=== PATIENT | male | born 1945 | race African-American/Black ===

== ENCOUNTER 2020-09-17 10:31 | Inpatient (IN) | payer MEDICARE ==
[~2020-09-17] VITALS: Ht 175.3 cm; Wt 62.6 kg
[2020-09-17] MEDS ORDERED: SODIUM CHLORIDE 0.9% 1000ML BAG (SEPSIS BOLUS) IV ONE (11:00)
[2020-09-17 11:21] LABS: HEMATOCRIT. 29.2 % (42.0-52.0); MEAN CORPUSCULAR HEMOGLOBIN 29.5 pg (28.0-32.0); MEAN CORPUSCULAR VOLUME 95.6 fL (80.0-94.0); PLATELET 197 x1000/uL (130-400); RED BLOOD CELL COUNT 3.06 mill/uL (4.7-6.1); RED CELL DISTRIBUTION WIDTH 23.1 % (11.6-14.6)
[2020-09-17 11:27] LABS: CHLORIDE 105 mEq/L (98-107)
[2020-09-17 11:28] LABS: INR 1.2; PROTHROMBIN TIME 12.4 sec (9.6-11.0)
[2020-09-17 11:50] LABS: NUCLEATED RED BLOOD CELLS 1 /100 WBC; PLATELET ESTIMATE NORMAL
[2020-09-17] MEDS ORDERED: PIPERACILLIN/TAZ 3.375G PREMIX 50 ML IV ONE (12:30)
[2020-09-17] MEDS ORDERED: VANCOMYCIN 1 G PREMIX 200 ML IV ONE (12:30)
[2020-09-17 14:01] LABS: BG BASE EXCESS -2.5 mmol/L (-2.0-2.0); BG CARBOXYHEMOGLOBIN 0.4 % (0.5-1.5); BG DEOXYHEMOGLOBIN 3.8 % (0.0-5.0); BG FRACTION INSPIRED OXYGEN 36; BG HCO3 ACT 22.7 mmol/L (22.0-26.0); BG METHEMOGLOBIN 0.3 % (0.0-1.5); BG OXYGEN SATURATION 96.2 % (92.0-98.5); BG OXYHEMOGLOBIN 95.5 % (94.0-97.0); BG PCO2 40.7 mmHg (35.0-45.0); BG PH 7.364 (7.350-7.450); BG PO2 95.4 mmHg (75.0-100.0); BG SAMPLE SITE RIGHT RADIAL; BG TOTAL HEMOGLOBIN 8.7 g/dL (12.0-18.0); BG VENT MODE NASAL CANNULA
[2020-09-17] MEDS ORDERED: ONDANSETRON HCL 4MG/2ML INJ IV PRN (15:15)
[2020-09-17] MEDS ORDERED: CLONIDINE 0.1MG TABLET PO PRN (15:15)
[2020-09-17] MEDS ORDERED: NITROGLYCERIN 0.4MG TABLET SL SL PRN (15:15)
[2020-09-17] MEDS ORDERED: DIPHENHYDRAMINE 50MG/ML VIAL IV PRN (15:15)
[2020-09-17] MEDS ORDERED: ACETAMINOPHEN 325MG TABLET PO PRN ×2 (15:15)
[2020-09-17] MEDS ORDERED: TRAMADOL 50MG TABLET PO PRN (15:15)
[2020-09-17] MEDS ORDERED: GUAIFENESIN 200MG/10ML SUGAR FREE UDC PO PRN (15:15)
[2020-09-17] MEDS ORDERED: PIPERACILLIN/TAZ 3.375G PREMIX 50 ML IV SCH (15:15)
[2020-09-17] MEDS ORDERED: SODIUM CHLORIDE 0.9% 500 ML IV ONE (15:15)
[2020-09-17] MEDS ORDERED: DOCUSATE SODIUM 100MG CAPSULE PO PRN (15:15)
[2020-09-17] MEDS ORDERED: ZOLPIDEM TARTRATE 5MG TABLET PO PRN (15:15)
[2020-09-17] MEDS ORDERED: MAGNESIUM/ALUMINUM HYDROXIDE/SIMETHICONE 30ML UDC PO PRN (15:15)
[2020-09-17] MEDS ORDERED: IPRATROPIUM/ALBUTEROL 0.5-3(2.5)MG/3ML NEB NEB PRN (15:15)
[2020-09-17] MEDS ORDERED: NOREPINEPHRINE 8 MG in DEXT 5% WATER 242 ML IV PRN ×2 (16:00→16:15)
[2020-09-17 16:35] LABS: FOLIC ACID (FOLATE) SERUM 19.3 ng/mL (>5.38)
[2020-09-17 17:49] LABS: BG DEOXYHEMOGLOBIN 4.1 % (0.0-5.0); BG FRACTION INSPIRED OXYGEN 32; BG HCO3 ACT 23.5 mmol/L (22.0-26.0); BG METHEMOGLOBIN 0.1 % (0.0-1.5); BG OXYGEN SATURATION 95.9 % (92.0-98.5); BG OXYHEMOGLOBIN 95.8 % (94.0-97.0); BG PCO2 43.5 mmHg (35.0-45.0); BG PH 7.351 (7.350-7.450); BG PO2 95.5 mmHg (75.0-100.0); BG SAMPLE SITE RIGHT RADIAL; BG VENT MODE NASAL CANNULA
[2020-09-17] MEDS ORDERED: MIDODRINE HCL 5MG TABLET PO SCH (18:45)
[2020-09-17 19:40] LABS: HEPATITIS B SURFACE ANTIGEN NEGATIVE
[2020-09-17 20:10] LABS: HEPATITIS A AB IGM NEGATIVE (NEGATIVE)
[2020-09-17] MEDS: ASCORBIC ACID 500 MG TABLET PO SCH (21:28)
[2020-09-17] MEDS: FAMOTIDINE 20MG TABLET PO SCH (21:30)
[2020-09-17] MEDS: EPOETIN ALFA-EPBX 10,000 UNIT/ML VIAL SUBCUT SCH (21:33)
[2020-09-17] MEDS: ENOXAPARIN 30MG/0.3ML SYR SUBCUT SCH (21:34)
[2020-09-17] MEDS: SEVELAMER CARBONATE 800 MG TABLET PO SCH (22:30)
[2020-09-17] MEDS: PIPERACILLIN/TAZOBACTAM 2.25G in DEXTROSE 5% WATER 50ML IV SCH (22:31)
[2020-09-17 22:58] LABS: CREATINE KINASE MB FRACTION 3.5 ng/mL (0.5-3.6)
[2020-09-18] VITALS (7 sets, daily range): BP systolic 92–155; BP diastolic 57–96
[2020-09-18 05:09] LABS: HEMATOCRIT. 31.1 % (42.0-52.0); MEAN CORPUSCULAR HEMOGLOBIN 29.6 pg (28.0-32.0); MEAN CORPUSCULAR VOLUME 92.2 fL (80.0-94.0); MEAN PLATELET VOLUME 8.4 fl (7.4-10.4); PLATELET 192 x1000/uL (130-400); RED BLOOD CELL COUNT 3.38 mill/uL (4.7-6.1); RED CELL DISTRIBUTION WIDTH 22.6 % (11.6-14.6)
[2020-09-18 05:16] LABS: CHLORIDE 104 mEq/L (98-107)
[2020-09-18 05:22] LABS: PHOSPHORUS 5.5 mg/dL (2.5-4.9)
[2020-09-18 05:25] LABS: CREATINE KINASE 125 IU/L (39-308)
[2020-09-18 05:27] LABS: CREATINE KINASE MB FRACTION 2.8 ng/mL (0.5-3.6)
[2020-09-18] MEDS: PIPERACILLIN/TAZOBACTAM 2.25G in DEXTROSE 5% WATER 50ML IV SCH ×3 (06:52→21:22)
[2020-09-18] MEDS: SEVELAMER CARBONATE 800 MG TABLET PO SCH ×3 (07:00→18:18)
[2020-09-18] MEDS: ASPIRIN 325MG EC TABLET PO SCH (09:00)
[2020-09-18] MEDS: FAMOTIDINE 20MG TABLET PO SCH (10:23)
[2020-09-18] MEDS: CHOLECALCIFEROL (D3) 1000 UNIT TABLET PO SCH (10:24)
[2020-09-18] MEDS: ASCORBIC ACID 500 MG TABLET PO SCH ×2 (10:24→21:22)
[2020-09-18] MEDS: ZINC SULFATE 220 MG ( 50 ) CAPSULE PO SCH (10:24)
[2020-09-18] MEDS: ENOXAPARIN 30MG/0.3ML SYR SUBCUT SCH (11:39)
[2020-09-18 12:05] LABS: PLATELET ESTIMATE NORMAL
[2020-09-18] MEDS ORDERED: NALOXONE HCL 0.4MG/ML VIAL IV PRN (15:45)
[2020-09-19] VITALS (8 sets, daily range): BP systolic 88–116; BP diastolic 57–72
[2020-09-19] MEDS: IPRATROPIUM/ALBUTEROL 0.5-3(2.5)MG/3ML NEB HHN SCH ×3 (00:52→17:10)
[2020-09-19] MEDS: PIPERACILLIN/TAZOBACTAM 2.25G in DEXTROSE 5% WATER 50ML IV SCH ×3 (06:18→22:08)
[2020-09-19] MEDS: CHOLECALCIFEROL (D3) 1000 UNIT TABLET PO SCH (08:50)
[2020-09-19] MEDS: SEVELAMER CARBONATE 800 MG TABLET PO SCH ×3 (08:51→18:13)
[2020-09-19] MEDS: ASCORBIC ACID 500 MG TABLET PO SCH ×2 (08:51→22:08)
[2020-09-19] MEDS: FAMOTIDINE 20MG TABLET PO SCH (08:51)
[2020-09-19] MEDS: ASPIRIN 325MG EC TABLET PO SCH (09:00)
[2020-09-19 09:04] LABS: PHOSPHORUS 5.6 mg/dL (2.5-4.9)
[2020-09-19 09:10] LABS: HEMATOCRIT. 26.6 % (42.0-52.0); HEMOGLOBIN. 8.6 g/dL (14.0-18.0); MEAN CORPUSCULAR HEMOGLOBIN 29.9 pg (28.0-32.0); MEAN CORPUSCULAR VOLUME 92.8 fL (80.0-94.0); MEAN PLATELET VOLUME 8.8 fl (7.4-10.4); PLATELET 160 x1000/uL (130-400); RED BLOOD CELL COUNT 2.87 mill/uL (4.7-6.1); RED CELL DISTRIBUTION WIDTH 22.4 % (11.6-14.6)
[2020-09-19] MEDS: ZINC SULFATE 220 MG ( 50 ) CAPSULE PO SCH (09:15)
[2020-09-19] MEDS ORDERED: MIDODRINE HCL 5MG TABLET PO SCH (14:00)
[2020-09-19 17:54] LABS: NUCLEATED RED BLOOD CELLS 1 /100 WBC; PLATELET ESTIMATE NORMAL
[2020-09-19] MEDS: EPOETIN ALFA-EPBX 10,000 UNIT/ML VIAL SUBCUT SCH (22:21)
[2020-09-20] VITALS (10 sets, daily range): BP systolic 95–126; BP diastolic 55–96
[2020-09-20] MEDS: IPRATROPIUM/ALBUTEROL 0.5-3(2.5)MG/3ML NEB HHN SCH ×4 (00:02→23:10)
[2020-09-20 05:31] LABS: HEMATOCRIT. 30.7 % (42.0-52.0); HEMOGLOBIN. 9.7 g/dL (14.0-18.0); MEAN CORPUSCULAR HEMOGLOBIN 29.6 pg (28.0-32.0); MEAN CORPUSCULAR VOLUME 93.6 fL (80.0-94.0); MEAN PLATELET VOLUME 8.9 fl (7.4-10.4); PLATELET 143 x1000/uL (130-400); RED BLOOD CELL COUNT 3.28 mill/uL (4.7-6.1); RED CELL DISTRIBUTION WIDTH 22.8 % (11.6-14.6)
[2020-09-20] MEDS: PIPERACILLIN/TAZOBACTAM 2.25G in DEXTROSE 5% WATER 50ML IV SCH ×3 (05:38→23:32)
[2020-09-20 05:47] LABS: CHLORIDE 102 mEq/L (98-107)
[2020-09-20 05:58] LABS: PHOSPHORUS 4.4 mg/dL (2.5-4.9)
[2020-09-20] MEDS: DILTIAZEM HCL 30MG TABLET PO SCH ×3 (08:36→23:33)
[2020-09-20] MEDS: ASCORBIC ACID 500 MG TABLET PO SCH ×2 (08:36→23:33)
[2020-09-20] MEDS: SEVELAMER CARBONATE 800 MG TABLET PO SCH ×2 (08:36→13:00)
[2020-09-20] MEDS: ZINC SULFATE 220 MG ( 50 ) CAPSULE PO SCH (08:36)
[2020-09-20] MEDS: FAMOTIDINE 20MG TABLET PO SCH (08:36)
[2020-09-20] MEDS: CHOLECALCIFEROL (D3) 1000 UNIT TABLET PO SCH (08:36)
[2020-09-21] VITALS (9 sets, daily range): BP systolic 99–148; BP diastolic 59–74
[2020-09-21 00:14] LABS: NUCLEATED RED BLOOD CELLS 1 /100 WBC; PLATELET ESTIMATE NORMAL
[2020-09-21 05:26] LABS: HEMATOCRIT. 30.2 % (42.0-52.0); HEMOGLOBIN. 9.4 g/dL (14.0-18.0); MEAN CORPUSCULAR HEMOGLOBIN 29.9 pg (28.0-32.0); MEAN CORPUSCULAR VOLUME 95.8 fL (80.0-94.0); MEAN PLATELET VOLUME 8.6 fl (7.4-10.4); PLATELET 149 x1000/uL (130-400); RED BLOOD CELL COUNT 3.16 mill/uL (4.7-6.1); RED CELL DISTRIBUTION WIDTH 23.1 % (11.6-14.6)
[2020-09-21] MEDS: PIPERACILLIN/TAZOBACTAM 2.25G in DEXTROSE 5% WATER 50ML IV SCH ×3 (05:29→21:12)
[2020-09-21] MEDS: DILTIAZEM HCL 30MG TABLET PO SCH (05:30)
[2020-09-21 05:59] LABS: PHOSPHORUS 3.9 mg/dL (2.5-4.9)
[2020-09-21 06:26] LABS: BG BASE EXCESS -3.5 mmol/L (-2.0-2.0); BG CARBOXYHEMOGLOBIN 0.8 % (0.5-1.5); BG DEOXYHEMOGLOBIN 9.6 % (0.0-5.0); BG FRACTION INSPIRED OXYGEN 32; BG HCO3 ACT 23.2 mmol/L (22.0-26.0); BG METHEMOGLOBIN 0.1 % (0.0-1.5); BG OXYGEN SATURATION 90.3 % (92.0-98.5); BG OXYHEMOGLOBIN 89.5 % (94.0-97.0); BG PH 7.293 (7.350-7.450); BG PO2 69.7 mmHg (75.0-100.0); BG SAMPLE SITE LEFT RADIAL; BG TOTAL HEMOGLOBIN 11.1 g/dL (12.0-18.0); BG VENT MODE NASAL CANNULA
[2020-09-21] MEDS: SEVELAMER CARBONATE 800 MG TABLET PO SCH ×4 (08:00→17:52)
[2020-09-21] MEDS: IPRATROPIUM/ALBUTEROL 0.5-3(2.5)MG/3ML NEB HHN SCH ×2 (08:32→12:54)
[2020-09-21] MEDS: ASCORBIC ACID 500 MG TABLET PO SCH ×2 (10:25→21:11)
[2020-09-21] MEDS: ZINC SULFATE 220 MG ( 50 ) CAPSULE PO SCH (10:26)
[2020-09-21] MEDS: CHOLECALCIFEROL (D3) 1000 UNIT TABLET PO SCH (10:26)
[2020-09-21] MEDS: FAMOTIDINE 20MG TABLET PO SCH (10:26)
[2020-09-21] MEDS: METOPROLOL TARTRATE 25MG TABLET PO SCH ×2 (10:45→21:00)
[2020-09-21] MEDS ORDERED: METOPROLOL TARTRATE 5MG/5ML VIAL IV SCH (11:15)
[2020-09-21 16:12] LABS: BG BASE EXCESS -6.1 mmol/L (-2.0-2.0); BG CARBOXYHEMOGLOBIN 0.3 % (0.5-1.5); BG DEOXYHEMOGLOBIN 0.6 % (0.0-5.0); BG FRACTION INSPIRED OXYGEN 100; BG HCO3 ACT 21.2 mmol/L (22.0-26.0); BG METHEMOGLOBIN 0.3 % (0.0-1.5); BG OXYGEN SATURATION 99.4 % (92.0-98.5); BG OXYHEMOGLOBIN 98.8 % (94.0-97.0); BG PCO2 51.2 mmHg (35.0-45.0); BG PH 7.235 (7.350-7.450); BG PO2 338.8 mmHg (75.0-100.0); BG SAMPLE SITE LEFT BRACHIAL; BG TOTAL HEMOGLOBIN 9.2 g/dL (12.0-18.0); BG TOTAL RESPIRATORY RATE 15 b/min
[2020-09-21 22:32] LABS: PLATELET ESTIMATE NORMAL
[2020-09-22] VITALS: BP 92/61
[2020-09-22] MEDS: IPRATROPIUM/ALBUTEROL 0.5-3(2.5)MG/3ML NEB HHN SCH ×3 (01:25→17:08)
[2020-09-22 04:00] VITALS: BP 114/44
[2020-09-22] MEDS: PIPERACILLIN/TAZOBACTAM 2.25G in DEXTROSE 5% WATER 50ML IV SCH ×2 (05:47→14:41)
[2020-09-22 08:00] VITALS: BP 141/81
[2020-09-22] MEDS: CHOLECALCIFEROL (D3) 1000 UNIT TABLET PO SCH (08:48)
[2020-09-22] MEDS: ASCORBIC ACID 500 MG TABLET PO SCH ×2 (08:48→20:33)
[2020-09-22] MEDS: METOPROLOL TARTRATE 25MG TABLET PO SCH (08:48)
[2020-09-22] MEDS: ZINC SULFATE 220 MG ( 50 ) CAPSULE PO SCH (08:48)
[2020-09-22] MEDS: FAMOTIDINE 20MG TABLET PO SCH (08:48)
[2020-09-22] MEDS: SEVELAMER CARBONATE 800 MG TABLET PO SCH ×3 (08:48→17:44)
[2020-09-22] MEDS ORDERED: METOPROLOL TARTRATE 25MG TABLET PO NR (09:30)
[2020-09-22 11:41] LABS: BG BASE EXCESS -8.2 mmol/L (-2.0-2.0); BG DEOXYHEMOGLOBIN 1.3 % (0.0-5.0); BG HCO3 ACT 19.7 mmol/L (22.0-26.0); BG OXYGEN SATURATION 98.7 % (92.0-98.5); BG OXYHEMOGLOBIN 98.7 % (94.0-97.0); BG PH 7.205 (7.350-7.450); BG SAMPLE SITE LEFT BRACHIAL; BG TOTAL HEMOGLOBIN 10.9 g/dL (12.0-18.0); BG VENT MODE MASK - BIPAP
[2020-09-22 12:20] VITALS: BP 99/70
[2020-09-22] MEDS ORDERED: SODIUM BICARBONATE 8.4% 1 MEQ/ML 50ML SYR IV NR (12:30)
[2020-09-22 16:00] VITALS: BP 126/77
[2020-09-22] MEDS ORDERED: AMIODARONE HCL 150 MG in DEXT 5% WATER 100 ML IV NR (16:00)
[2020-09-22] MEDS ORDERED: VANCOMYCIN 750 MG PREMIX 150 ML IV NR (17:00)
[2020-09-22 20:00] VITALS: BP 132/78
[2020-09-22] MEDS: EPOETIN ALFA-EPBX 10,000 UNIT/ML VIAL SUBCUT SCH (20:33)
[2020-09-22] MEDS: METOPROLOL TARTRATE 50MG TABLET PO SCH (20:34)
[2020-09-23] VITALS (105 sets, daily range): BP systolic 42–168; BP diastolic 24–120
[2020-09-23] MEDS: IPRATROPIUM/ALBUTEROL 0.5-3(2.5)MG/3ML NEB HHN SCH ×3 (01:02→16:51)
[2020-09-23 06:54] LABS: PHOSPHORUS 8.4 mg/dL (2.5-4.9)
[2020-09-23] MEDS ORDERED: DEXTROSE 50% WATER 50ML SYRINGE IV ONE ×3 (07:15→08:13)
[2020-09-23 07:22] LABS: HEMATOCRIT. 34.1 % (42.0-52.0); HEMOGLOBIN. 9.9 g/dL (14.0-18.0); MEAN CORPUSCULAR HEMOGLOBIN 29.9 pg (28.0-32.0); MEAN CORPUSCULAR VOLUME 102.8 fL (80.0-94.0); MEAN PLATELET VOLUME 8.8 fl (7.4-10.4); PLATELET 226 x1000/uL (130-400); RED BLOOD CELL COUNT 3.31 mill/uL (4.7-6.1); RED CELL DISTRIBUTION WIDTH 23.5 % (11.6-14.6)
[2020-09-23] MEDS ORDERED: DEXTROSE 50% WATER 50ML SYRINGE IV PRN (07:30)
[2020-09-23] MEDS ORDERED: CALCIUM CHLORIDE 1GM/10ML SYR IV ONE (08:13)
[2020-09-23] MEDS ORDERED: ATROPINE SULFATE 1MG/10ML SYR ONE (08:13)
[2020-09-23] MEDS ORDERED: EPINEPHRINE 0.1MG/ML (1:10,000) 10ML SYR ONE (08:13)
[2020-09-23] MEDS ORDERED: SODIUM BICARBONATE 8.4% 1 MEQ/ML 50ML SYR IV ONE (08:13)
[2020-09-23] MEDS ORDERED: DEXTROSE 50% WATER 50ML SYRINGE IV SCH (08:15)
[2020-09-23] MEDS: METOPROLOL TARTRATE 50MG TABLET PO SCH (09:00)
[2020-09-23] MEDS: ASCORBIC ACID 500 MG TABLET PO SCH ×2 (09:48→21:00)
[2020-09-23] MEDS: ZINC SULFATE 220 MG ( 50 ) CAPSULE PO SCH (09:48)
[2020-09-23] MEDS: CHOLECALCIFEROL (D3) 1000 UNIT TABLET PO SCH (09:49)
[2020-09-23] MEDS: FAMOTIDINE 20MG TABLET PO SCH (09:49)
[2020-09-23 10:02] LABS: BG BASE EXCESS -14.7 mmol/L (-2.0-2.0); BG CARBOXYHEMOGLOBIN 0.5 % (0.5-1.5); BG DEOXYHEMOGLOBIN 3.7 % (0.0-5.0); BG FRACTION INSPIRED OXYGEN 80; BG HCO3 ACT 15.9 mmol/L (22.0-26.0); BG METHEMOGLOBIN 0.3 % (0.0-1.5); BG OXYGEN SATURATION 96.3 % (92.0-98.5); BG OXYHEMOGLOBIN 95.5 % (94.0-97.0); BG PCO2 60.4 mmHg (35.0-45.0); BG PH 7.037 (7.350-7.450); BG PO2 121.9 mmHg (75.0-100.0); BG SAMPLE SITE LEFT RADIAL; BG TOTAL HEMOGLOBIN 10.5 g/dL (12.0-18.0); BG TOTAL RESPIRATORY RATE 25 b/min; BG VENT MODE MASK - BIPAP
[2020-09-23] MEDS ORDERED: SODIUM CHLORIDE 0.9% 10ML VIAL ONE (10:07)
[2020-09-23] MEDS ORDERED: VECURONIUM BROMIDE 10 MG/VIAL IV ONE (10:07)
[2020-09-23] MEDS ORDERED: ETOMIDATE 2MG/ML 10ML VIAL IV ONE (10:07)
[2020-09-23] MEDS ORDERED: SODIUM BICARBONATE 8.4% 1 MEQ/ML 50ML SYR IV SCH (10:15)
[2020-09-23] MEDS ORDERED: PHENYLEPHRINE 50 MG in DEXT 5% WATER 245 ML IV PRN (11:00)
[2020-09-23] MEDS ORDERED: NOREPINEPHRINE 8 MG in DEXT 5% WATER 242 ML IV PRN (11:00)
[2020-09-23] MEDS ORDERED: FENTANYL CITRATE/PF 2,500 MCG in SODIUM CHLORIDE 0.9% 200 ML IV PRN (11:00)
[2020-09-23] MEDS ORDERED: SODIUM CHLORIDE 0.9% 250 ML IV SCH (11:15)
[2020-09-23 11:50] LABS: HEPATITIS B SURFACE ANTIGEN NEGATIVE
[2020-09-23 12:19] LABS: HEPATITIS A AB IGM NEGATIVE (NEGATIVE)
[2020-09-23 12:46] LABS: BG BASE EXCESS -9.1 mmol/L (-2.0-2.0); BG CARBOXYHEMOGLOBIN 0.3 % (0.5-1.5); BG FRACTION INSPIRED OXYGEN 100; BG HCO3 ACT 16.9 mmol/L (22.0-26.0); BG METHEMOGLOBIN 0.5 % (0.0-1.5); BG OXYHEMOGLOBIN 98.2 % (94.0-97.0); BG PH 7.277 (7.350-7.450); BG PO2 228.9 mmHg (75.0-100.0); BG SAMPLE SITE LEFT RADIAL; BG TOTAL HEMOGLOBIN 10.8 g/dL (12.0-18.0); BG VENT MODE VENT - AC
[2020-09-23] MEDS: PROPOFOL 10MG/ML 100ML 100 ML IV PRN (12:57)
[2020-09-23] MEDS: SEVELAMER CARBONATE 800 MG TABLET PO SCH ×2 (14:15→17:32)
[2020-09-23] MEDS ORDERED: AMIODARONE HCL 150 MG in DEXT 5% WATER 100 ML IV NR (15:00)
[2020-09-23] MEDS: AMIODARONE HCL 900 MG in DEXT 5% WATER 482 ML IV SCH (15:34)
[2020-09-23] MEDS ORDERED: PIPERACILLIN/TAZOBACTAM 3.375 G in DEXTROSE 5% WATER 50 ML IV SCH (15:45)
[2020-09-23] MEDS: PHENYLEPHRINE 100 MG in DEXT 5% WATER 240 ML IV PRN (16:55)
[2020-09-23 17:01] LABS: PLATELET ESTIMATE NORMAL
[2020-09-23] MEDS: PIPERACILLIN/TAZOBACTAM 2.25G in DEXTROSE 5% WATER 50ML IV SCH (17:31)
[2020-09-23] MEDS: ENOXAPARIN 30MG/0.3ML SYR SUBCUT SCH (17:32)
[2020-09-23] MEDS ORDERED: SODIUM CHLORIDE 0.9% 250 ML IV NR (17:45)
[2020-09-23] MEDS ORDERED: DOPAMINE 800MG PREMIX (DOUBLE) 250 ML IV PRN (19:30)
[2020-09-23] MEDS ORDERED: VASOPRESSIN 20 UNIT in SODIUM CHLORIDE 0.9% 99 ML IV PRN (19:30)
[2020-09-23] MEDS: NOREPINEPHRINE 32 MG in DEXT 5% WATER 218 ML IV PRN (20:29)
[2020-09-23] MEDS ORDERED: METOPROLOL TARTRATE 25MG TABLET PO SCH (21:00)
[2020-09-23 22:58] LABS: BG BASE EXCESS -16.3 mmol/L (-2.0-2.0); BG CARBOXYHEMOGLOBIN 0.2 % (0.5-1.5); BG DEOXYHEMOGLOBIN 1.7 % (0.0-5.0); BG FRACTION INSPIRED OXYGEN 100; BG HCO3 ACT 11.3 mmol/L (22.0-26.0); BG METHEMOGLOBIN 0.1 % (0.0-1.5); BG OXYGEN SATURATION 98.3 % (92.0-98.5); BG PCO2 32.9 mmHg (35.0-45.0); BG PH 7.153 (7.350-7.450); BG PO2 150.5 mmHg (75.0-100.0); BG SAMPLE SITE LEFT BRACHIAL; BG TOTAL HEMOGLOBIN 11.6 g/dL (12.0-18.0); BG VENT MODE VENT - AC
[2020-09-23] MEDS ORDERED: SODIUM BICARBONATE 8.4% 1 MEQ/ML 50ML SYR IV NR (23:30)
[2020-09-24] VITALS (93 sets, daily range): BP systolic 74–151; BP diastolic 37–115
[2020-09-24] MEDS: IPRATROPIUM/ALBUTEROL 0.5-3(2.5)MG/3ML NEB HHN SCH ×4 (00:24→23:41)
[2020-09-24] MEDS: PIPERACILLIN/TAZOBACTAM 2.25G in DEXTROSE 5% WATER 50ML IV SCH ×3 (01:01→17:50)
[2020-09-24] MEDS: NOREPINEPHRINE 32 MG in DEXT 5% WATER 218 ML IV PRN ×3 (01:01→21:40)
[2020-09-24] MEDS: PHENYLEPHRINE 100 MG in DEXT 5% WATER 240 ML IV PRN ×3 (02:18→21:42)
[2020-09-24] MEDS: PROPOFOL 10MG/ML 100ML 100 ML IV PRN (04:01)
[2020-09-24 06:42] LABS: HEMATOCRIT. 31.8 % (42.0-52.0); HEMOGLOBIN. 9.6 g/dL (14.0-18.0); MEAN CORPUSCULAR HEMOGLOBIN 29.2 pg (28.0-32.0); MEAN CORPUSCULAR VOLUME 96.9 fL (80.0-94.0); PLATELET 229 x1000/uL (130-400); RED BLOOD CELL COUNT 3.29 mill/uL (4.7-6.1)
[2020-09-24 07:05] LABS: PHOSPHORUS 8.2 mg/dL (2.5-4.9)
[2020-09-24 08:16] LABS: NUCLEATED RED BLOOD CELLS 3 /100 WBC; PLATELET ESTIMATE NORMAL
[2020-09-24] MEDS: SEVELAMER CARBONATE 800 MG TABLET PO SCH ×2 (08:34→13:20)
[2020-09-24] MEDS: ENOXAPARIN 30MG/0.3ML SYR SUBCUT SCH (08:35)
[2020-09-24] MEDS: ZINC SULFATE 220 MG ( 50 ) CAPSULE PO SCH (08:35)
[2020-09-24] MEDS: ASCORBIC ACID 500 MG TABLET PO SCH ×2 (08:35→21:43)
[2020-09-24] MEDS: CHOLECALCIFEROL (D3) 1000 UNIT TABLET PO SCH (08:35)
[2020-09-24] MEDS: FAMOTIDINE 20MG TABLET PO SCH (08:35)
[2020-09-24 08:58] LABS: BG BASE EXCESS -17.7 mmol/L (-2.0-2.0); BG CARBOXYHEMOGLOBIN 0.2 % (0.5-1.5); BG DEOXYHEMOGLOBIN 0.3 % (0.0-5.0); BG FRACTION INSPIRED OXYGEN 100; BG HCO3 ACT 9.4 mmol/L (22.0-26.0); BG METHEMOGLOBIN 0.2 % (0.0-1.5); BG OXYGEN SATURATION 99.7 % (92.0-98.5); BG OXYHEMOGLOBIN 99.3 % (94.0-97.0); BG PCO2 26.6 mmHg (35.0-45.0); BG PH 7.165 (7.350-7.450); BG PO2 280.2 mmHg (75.0-100.0); BG SAMPLE SITE LEFT RADIAL; BG TOTAL HEMOGLOBIN 10.4 g/dL (12.0-18.0); BG VENT MODE VENT - APRV
[2020-09-24] MEDS ORDERED: SODIUM BICARBONATE 150 MEQ in SODIUM CHLORIDE 0.45% 1,000 ML IV SCH (11:00)
[2020-09-24] MEDS ORDERED: SODIUM POLYSTYRENE SULFONATE 15 G/60 ML BOT PO NR (13:00)
[2020-09-24] MEDS ORDERED: SODIUM BICARBONATE 8.4% 1 MEQ/ML 50ML SYR IV NR (13:30)
[2020-09-24] MEDS: SODIUM BICARBONATE 150 MEQ in DEXTROSE 5% WATER 1,000 ML IV SCH (15:25)
[2020-09-24] MEDS: AMIODARONE HCL 900 MG in DEXT 5% WATER 482 ML IV SCH (15:37)
[2020-09-24] MEDS ORDERED: PROPOFOL 10MG/ML 100ML 100 ML IV PRN (19:00)
[2020-09-25] VITALS (46 sets, daily range): BP systolic 71–107; BP diastolic 41–78
[2020-09-25] MEDS: PIPERACILLIN/TAZOBACTAM 2.25G in DEXTROSE 5% WATER 50ML IV SCH ×2 (00:56→08:59)
[2020-09-25] MEDS: NOREPINEPHRINE 32 MG in DEXT 5% WATER 218 ML IV PRN ×2 (04:09→12:41)
[2020-09-25] MEDS ORDERED: DOPAMINE 800MG PREMIX (DOUBLE) 250 ML IV ONE (05:03)
[2020-09-25 05:54] LABS: HEMATOCRIT. 28.2 % (42.0-52.0); MEAN CORPUSCULAR HEMOGLOBIN 30.9 pg (28.0-32.0); MEAN PLATELET VOLUME 10.1 fl (7.4-10.4); PLATELET 134 x1000/uL (130-400); RED BLOOD CELL COUNT 2.59 mill/uL (4.7-6.1); RED CELL DISTRIBUTION WIDTH 23.2 % (11.6-14.6)
[2020-09-25 06:02] LABS: CHLORIDE 91 mEq/L (98-107)
[2020-09-25 06:14] LABS: CREATINE KINASE 957 IU/L (39-308)
[2020-09-25 06:46] LABS: PHOSPHORUS 13.3 mg/dL (2.5-4.9)
[2020-09-25] MEDS: SODIUM BICARBONATE 150 MEQ in DEXTROSE 5% WATER 1,000 ML IV SCH (06:52)
[2020-09-25] MEDS: PHENYLEPHRINE 100 MG in DEXT 5% WATER 240 ML IV PRN (06:52)
[2020-09-25] MEDS ORDERED: SODIUM BICARBONATE 8.4% 1 MEQ/ML 50ML SYR IV NR (07:01)
[2020-09-25] MEDS ORDERED: DEXTROSE 50% WATER 50ML SYRINGE IV NR (07:15)
[2020-09-25] MEDS ORDERED: INSULIN REGULAR (HUMULIN R) 300UNITS/3ML VIAL IV NR (07:15)
[2020-09-25] MEDS ORDERED: SODIUM BICARBONATE 8.4% 1 MEQ/ML 50ML SYR IV ONE ×3 (07:29→09:30)
[2020-09-25 07:43] LABS: NUCLEATED RED BLOOD CELLS 5 /100 WBC; PLATELET ESTIMATE NORMAL
[2020-09-25] MEDS ORDERED: SODIUM POLYSTYRENE SULFONATE 15 G/60 ML BOT PO NR (08:00)
[2020-09-25] MEDS ORDERED: CALCIUM GLUCONATE 1GM PREMIX 50 ML IV NR (08:00)
[2020-09-25] MEDS ORDERED: AMIODARONE HCL 50MG/ML 3ML VIAL IV ONE (08:14)
[2020-09-25] MEDS ORDERED: EPINEPHRINE 0.1MG/ML (1:10,000) 10ML SYR ONE (08:14)
[2020-09-25] MEDS ORDERED: ATROPINE SULFATE 1MG/10ML SYR ONE (08:14)
[2020-09-25] MEDS: IPRATROPIUM/ALBUTEROL 0.5-3(2.5)MG/3ML NEB HHN SCH (08:55)
[2020-09-25] MEDS: ENOXAPARIN 30MG/0.3ML SYR SUBCUT SCH (08:58)
[2020-09-25] MEDS: CHOLECALCIFEROL (D3) 1000 UNIT TABLET PO SCH (08:59)
[2020-09-25] MEDS: ASCORBIC ACID 500 MG TABLET PO SCH (08:59)
[2020-09-25] MEDS: FAMOTIDINE 20MG TABLET PO SCH (08:59)
[2020-09-25] MEDS: ZINC SULFATE 220 MG ( 50 ) CAPSULE PO SCH (08:59)
[2020-09-25 09:26] LABS: BG CARBOXYHEMOGLOBIN 0.3 % (0.5-1.5); BG DEOXYHEMOGLOBIN 2.6 % (0.0-5.0); BG FRACTION INSPIRED OXYGEN 80; BG HCO3 ACT 5.2 mmol/L (22.0-26.0); BG METHEMOGLOBIN 0.2 % (0.0-1.5); BG OXYGEN SATURATION 97.4 % (92.0-98.5); BG OXYHEMOGLOBIN 96.9 % (94.0-97.0); BG PCO2 23.3 mmHg (35.0-45.0); BG PH 6.969 (7.350-7.450); BG PO2 148.9 mmHg (75.0-100.0); BG SAMPLE SITE LEFT BRACHIAL; BG VENT MODE VENT - AC
[2020-09-25] MEDS ORDERED: VASOPRESSIN 20 UNIT in SODIUM CHLORIDE 0.9% 99 ML IV PRN (10:15)
[2020-09-25] MEDS ORDERED: CALCIUM CHLORIDE 1GM/10ML SYR IV NR (11:00)
[2020-09-25] MEDS ORDERED: ALBUMIN HUMAN 25GM/100ML (25%) IV NR (12:45)
[2020-09-25] MEDS ORDERED: VANCOMYCIN 500 MG PREMIX 100 ML IV NR (17:00)
== END 2020-09-25 13:33 | DRG 871 ==
LOC: ER 10:31 → EDBEDREQSVC 13:03 → EDBEDREQ 13:03 → SUPCPDRO 15:09 → EDBEDREQSVC 17:01 → CANRESERV 21:30 → ENRESERV 21:30 → EDBEDREQTM 09-18 03:10 → MICUSO 09-18 03:55 → 5EST 09-18 08:37 → CVICU 09-23 10:17
PROVIDERS: ADMIT Internal Medicine; ATTEND Internal Medicine
PROC: 0W993ZZ Drainage of Right Pleural Cavity, Percutaneous Approach (ICD-10-PCS; 2020-09-18)
PROC: 5A1D70Z Performance of Urinary Filtration, Intermittent, Less than 6 Hours Per Day (ICD-10-PCS; 2020-09-18)
PROC: 5A1D70Z Performance of Urinary Filtration, Intermittent, Less than 6 Hours Per Day (ICD-10-PCS; 2020-09-20)
PROC: 5A09457 Assistance with Respiratory Ventilation, 24-96 Consecutive Hours, Continuous Positive Airway Pressure (ICD-10-PCS; 2020-09-21)
PROC: 0BH17EZ Insertion of Endotracheal Airway into Trachea, Via Natural or Artificial Opening (ICD-10-PCS; principal; 2020-09-23)
PROC: 5A1945Z Respiratory Ventilation, 24-96 Consecutive Hours (ICD-10-PCS; 2020-09-23)
PROC: 02HV33Z Insertion of Infusion Device into Superior Vena Cava, Percutaneous Approach (ICD-10-PCS; 2020-09-23)
PROC: B548ZZA Ultrasonography of Superior Vena Cava, Guidance (ICD-10-PCS; 2020-09-23)
PROC: 5A1D70Z Performance of Urinary Filtration, Intermittent, Less than 6 Hours Per Day (ICD-10-PCS; 2020-09-23)
PROC: 5A12012 Performance of Cardiac Output, Single, Manual (ICD-10-PCS; 2020-09-25)
DX: A41.9 Sepsis, unspecified organism (principal); E43 Unspecified severe protein-calorie malnutrition; J18.9 Pneumonia, unspecified organism; J96.01 Acute respiratory failure with hypoxia; N18.6 End stage renal disease; R65.21 Severe sepsis with septic shock; I50.21 Acute systolic (congestive) heart failure; J96.02 Acute respiratory failure with hypercapnia; K72.00 Acute and subacute hepatic failure without coma; I21.4 Non-ST elevation (NSTEMI) myocardial infarction; D68.59 Other primary thrombophilia; E87.2 Acidosis; K62.5 Hemorrhage of anus and rectum; N25.81 Secondary hyperparathyroidism of renal origin; C78.02 Secondary malignant neoplasm of left lung; C78.01 Secondary malignant neoplasm of right lung; C78.7 Secondary malignant neoplasm of liver and intrahepatic bile duct; J91.8 Pleural effusion in other conditions classified elsewhere; I13.2 Hypertensive heart and chronic kidney disease with heart failure and with stage 5 chronic kidney disease, or end stage renal disease; I42.9 Cardiomyopathy, unspecified; I47.1 Supraventricular tachycardia; I46.9 Cardiac arrest, cause unspecified; D63.8 Anemia in other chronic diseases classified elsewhere; E11.22 Type 2 diabetes mellitus with diabetic chronic kidney disease; E78.00 Pure hypercholesterolemia, unspecified; Z20.822 Contact with and (suspected) exposure to COVID-19; I49.01 Ventricular fibrillation; I48.91 Unspecified atrial fibrillation; S30.0XXA Contusion of lower back and pelvis, initial encounter; X58.XXXA Exposure to other specified factors, initial encounter; E87.5 Hyperkalemia; Z68.20 Body mass index [BMI] 20.0-20.9, adult; Z78.9 Other specified health status; Z82.49 Family history of ischemic heart disease and other diseases of the circulatory system; Z99.2 Dependence on renal dialysis; Z85.048 Personal history of other malignant neoplasm of rectum, rectosigmoid junction, and anus; Z87.01 Personal history of pneumonia (recurrent); Z79.899 Other long term (current) drug therapy; Y93.89 Activity, other specified; Y92.89 Other specified places as the place of occurrence of the external cause; Y99.8 Other external cause status
CPT/HCPCS: 32555; 36415; 36600; 71045; 71250; 80048; 80053; 80061; 80202; 82330; 82375; 82550; 82553; 82607; 82728; 82746; 82805; 82962; 83036; 83540; 83550; 83605; 83615; 83735; 84100; 84134; 84145; 84155; 84478; 84484; 85025; 86705; 86709; 86803; 87070; 87340; 87426; 88108; 88312; 92950; 93005; 93306; 93970; 94002; 94003; 94640; 94660; 99291; A6261; J0282; J0461; J0610; J0885; J1200; J1265; J1650; J2370; J2543; J2704; J3370; J3490; J7030; J7040; J7050; J7060; J7070